=== PATIENT | male | born 1970 ===

== ENCOUNTER → 2019-04-11 | Outpatient (CLI) | payer OTHER ==
--- NOTE | 2019-04-11 10:19 | RAD ---
EXAM: Lumbar spine, 3 views. HISTORY: Pain. COMPARISON: None. FINDINGS: 3 views of the lumbar spine are obtained. There is no listhesis. The vertebral bodies are normal in height. There is minimal endplate remodeling and facet arthropathy predominantly at the lower lumbar levels. IMPRESSION: No acute osseous finding. Electronically signed by: Deidre Reddy MD (04/11/2019 10:16 AM) [facility] [place]
== END | disposition home or self-care (01) ==
LOC: RAD 08:47
PROVIDERS: ATTEND Surgery
DX: M12.88 Other specific arthropathies, not elsewhere classified, other specified site (principal); Z87.828 Personal history of other (healed) physical injury and trauma
CPT/HCPCS: 72100